=== PATIENT | female | born 2000 | race Asian ===

== ENCOUNTER 2025-01-03 05:18 | Observation (INO) | payer BC ==
[2025-01-03] MEDS ORDERED: PANTOPRAZOLE SODIUM 40 MG VIAL ONE (05:42)
[2025-01-03] MEDS ORDERED: KETOROLAC TROMETHAMINE 30 MG/1 ML VIAL ONE (05:42)
[2025-01-03] MEDS ORDERED: ONDANSETRON 4 MG/2 ML VIAL ONE ×2 (05:42→10:34)
[2025-01-03] MEDS: SODIUM CHLORIDE 1,000 ML IV ONE (05:43)
[2025-01-03] MEDS: KETOROLAC TROMETHAMINE 30 MG/1 ML VIAL IVPUSH ONE (05:43)
[2025-01-03] MEDS: ONDANSETRON 4 MG/2 ML VIAL IVPB ONE (05:44)
[2025-01-03] MEDS: PANTOPRAZOLE SODIUM 40 MG VIAL IVPUSH ONE (05:50)
[2025-01-03 06:54] LABS: ABSOLUTE IMMATURE GRANULOCYTES 0.06 x10^3/uL (0.0-0.031); ALK PHOS 54.0 U/L (45-117); BASOPHILS # 0.04 x10^3/uL (0.01-0.08); CO2 29.0 mmol/L (21-32); CREATININE 0.8 mg/dL (0.55-1.3); EOSINOPHIL % 0.3 % (0.7-5.8); EOSINOPHILS # 0.05 x10^3/uL (0.04-0.36); GLUCOSE,RANDOM 91.0 mg/dL (74-106); MCHC 34.1 g/dl (32.2-35.5); MEAN CELL VOLUME 94.4 fl (79.4-94.8); MEAN PLT VOLUME 9.0 fl (9.4-12.3); MONOCYTE # 0.55 x10^3/uL (0.24-0.86); MONOCYTE % 3.6 % (4.7-12.5); RDW 11.1 % (12.1-16.5); SGOT/AST 21.0 U/L (15-37); SGPT/ALT 49.0 U/L (13-61); TOT PROT 8.2 g/dl (6.4-8.2)
[2025-01-03] MEDS: SODIUM CHLORIDE 0.9% 500 ML INFUS.BAG IV ONE (10:13)
[2025-01-03] MEDS: ONDANSETRON 4 MG/2 ML VIAL IVPUSH ONE (10:34)
[2025-01-03] MEDS: DEXTROSE 5%-NORMAL SALINE 1,000 ML IV SCH (13:32)
[2025-01-03] MEDS ORDERED: ONDANSETRON 4 MG/2 ML VIAL IVPUSH PRN (14:20)
[2025-01-03] MEDS ORDERED: LACTATED RINGERS SOLUTION 1,000 ML/1,000 ML INFUS.BAG IV SCH (14:30)
[2025-01-03 15:59] LABS: LDL CHOLESTEROL (ONLY SJRH) 163.0 mg/dL (5-100)
[2025-01-03 17:13] VITALS: BMI 30.9
[2025-01-03 20:32] VITALS: RESP 18
[2025-01-04 08:32] LABS: ABSOLUTE IMMATURE GRANULOCYTES 0.01 x10^3/uL (0.0-0.031); BASOPHILS # 0.03 x10^3/uL (0.01-0.08); EOSINOPHIL % 2.6 % (0.7-5.8); EOSINOPHILS # 0.14 x10^3/uL (0.04-0.36); MCHC 33.2 g/dl (32.2-35.5); MEAN CELL VOLUME 100.5 fl (79.4-94.8); MEAN PLT VOLUME 9.1 fl (9.4-12.3); MONOCYTE # 0.45 x10^3/uL (0.24-0.86); MONOCYTE % 8.4 % (4.7-12.5); RDW 11.3 % (12.1-16.5)
[2025-01-04 09:21] LABS: ALK PHOS 37.0 U/L (45-117); CO2 29.0 mmol/L (21-32); CREATININE 0.8 mg/dl (0.6-1.3); GLUCOSE,RANDOM 88.0 mg/dl (74-106); SGOT/AST 16.0 U/L (15-37); SGPT/ALT 31.0 U/L (7-52); TOT PROT 5.9 g/dl (6.4-8.2)
[2025-01-04] MEDS: IBUPROFEN 600 MG TABLET (FP) PO PRN (09:26)
[2025-01-04] MEDS: FAMOTIDINE 20 MG TABLET PO SCH (09:27)
[2025-01-04] MEDS ORDERED: ACETAMINOPHEN 325 MG TABLET (FP) PO PRN (14:28)
[2025-01-04] MEDS ORDERED: MAG HYDROX/AL HYDROX/SIMETH 30 ML UNIT-DOSE CUP PO PRN (14:29)
[2025-01-04] MEDS: PANTOPRAZOLE SODIUM 40 MG VIAL IVPUSH SCH (15:27)
[2025-01-05 08:12] LABS: ABSOLUTE IMMATURE GRANULOCYTES 0.01 x10^3/uL (0.0-0.031); BASOPHILS # 0.03 x10^3/uL (0.01-0.08); EOSINOPHIL % 1.6 % (0.7-5.8); EOSINOPHILS # 0.09 x10^3/uL (0.04-0.36); MCHC 33.4 g/dl (32.2-35.5); MEAN CELL VOLUME 99.2 fl (79.4-94.8); MEAN PLT VOLUME 8.9 fl (9.4-12.3); MONOCYTE # 0.38 x10^3/uL (0.24-0.86); MONOCYTE % 6.9 % (4.7-12.5); RDW 11.1 % (12.1-16.5)
[2025-01-05 09:02] LABS: CO2 27.0 mmol/L (21-32); CREATININE 0.8 mg/dl (0.6-1.3); GLUCOSE,RANDOM 90.0 mg/dl (74-106)
[2025-01-05 09:29] LABS: ERYTHROCYTE SEDIMENTATION RATE 14 mm/hr (0-20)
[2025-01-05 13:42] VITALS: BP 118/70; PULSE 86; TEMP 98.1
[2025-01-07 03:39] LABS: HCV DIAGNOSTIC IN-HOUSE W/RFLX NON-REACTIVE (NONREACTIVE)
[2025-01-07 23:49] LABS: HIV INTERPRETATION NEGATIVE (NEGATIVE)
== END 2025-01-05 13:49 | disposition home or self-care (01) ==
LOC: FER 05:18 → FM/S 14:03
PROVIDERS: ADMIT Internal Medicine; ATTEND Internal Medicine
PROC: 3E033GC Introduction of Other Therapeutic Substance into Peripheral Vein, Percutaneous Approach (ICD-10-PCS; principal; 2025-01-03)
PROC: 3E0337Z Introduction of Electrolytic and Water Balance Substance into Peripheral Vein, Percutaneous Approach (ICD-10-PCS; 2025-01-03)
DX: K29.70 Gastritis, unspecified, without bleeding (principal)
CPT/HCPCS: 36415; 74177-TC; 76705-TC; 76856-TC; 80048; 80053; 80061; 81003; 81025; 83690; 83735; 84100; 84439; 84443; 84703; 85025; 85651; 86140; 86803; 87086; 87338; 87389; 99285-25; G0378; Q9967